=== PATIENT | female | born 1995 | race Caucasian/White ===

== ENCOUNTER 2017-09-01 09:38 | Emergency (ER) | payer OTHER ==
[2017-09-01 09:43] VITALS: TEMP 97.7; O2SAT 98
[2017-09-01] MEDS ORDERED: NS 1,000 ML IV ONE ×3 (09:59→10:00)
[2017-09-01] MEDS ORDERED: ONDANSETRON 4 MG/2 ML VIAL IVP ONE (09:59)
[2017-09-01] MEDS ORDERED: HYDROmorphONE/DILAUDID 1 MG/ML INJ IVP ONE (10:00)
--- NOTE | 2017-09-01 10:05 | EDPHY ---
H & P Stated Complaint: etoh last evening/n/v/d Time Seen by Provider: 09/01/17 09:53 - Personal History LMP (Females 10-55): Extended Cycle BCP/Inj Current Tetanus/Diphtheria Vaccine: Unsure - Medical/Surgical History Hx Asthma: No Hx Chronic Respiratory Disease: No Hx Diabetes: No Hx Cardiac Disease: Yes Hx Renal Disease: No Hx Cirrhosis: No Hx Alcoholism: No Hx HIV/AIDS: No Hx Splenectomy or Spleen Trauma: No Other PMH: SVT - Social History Smoking Status: Current some day smoker Constitutional: Initial Vital Signs Temperature (C) 36.5 C 09/01/17 09:41 Heart Rate 120 H 09/01/17 09:41 Respiratory Rate 20 09/01/17 09:41 Blood Pressure 110/81 H 09/01/17 09:41 O2 Sat (%) 98 09/01/17 09:41 O2 Delivery Mode Room Air Allergies/Adverse Reactions: No Known Allergies Allergy (Verified 09/01/17 09:40) Home Medications: Medication Instructions Recorded Alem 06/04/16 Lexapro 09/01/17 Ondansetron Odt [Zofran Odt 4 mg 4 mg PO Q4 PRN #10 tab 09/01/17 (RX)] Tizanidine HCl 09/01/17 Medical Decision Making ED Course/Re-evaluation: CHIEF COMPLAINT: Nausea vomiting diarrhea HISTORY OF PRESENT ILLNESS: Healthy 22-year-old female who around midnight last night developed nausea vomiting diarrhea. She has been unable to sleep and vomiting all night. She did have sushi and Ramen for dinner last night she is not sure food putting. 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 REVIEW OF SYSTEMS: A 10 point review of systems was performed and is negative with the exception of the elements mentioned in the history of present illness. PHYSICAL EXAM: HR, BP, O2 Sat, RR. Temp noted General Appearance: Alert, well hydrated, appropriate, and non-toxic appearing. Head: Atraumatic without scalp tenderness or obvious injury Eyes: Pupils equal, round, reactive to light and accommodation, EOMI, no trauma , no injection. Ears: Clear bilaterally, no perforation, normal landmarks Nose: Atraumatic, no rhinorrhea, clear. Throat: There is no erythema or exudates, no lesions, normal tonsils, mucus membranes moist. Neck: Supple, 2+ carotid upstroke, nontender, no lymphadenopathy. Respiratory: No retractions, no distress, no wheezes, and no accessory muscle use. Lungs are clear to auscultation bilaterally. Cardiovascular: Regular rate and rhythm, no murmurs, rubs, or gallops. Bilateral carotid, radial, dorsalis pedis, and posterior tibial pulses intact. Good capillary refill all extremities. Gastrointestinal: Abdomen is soft, nontender, non-distended, no masses, no rebound, no guarding, no peritoneal signs. Musculoskeletal: Normal active ROM of all extremities, atraumatic. Neurological: Alert, appropriate, and interactive. The patient has normal DTRs and non-focal cranial nerves, motor, sensory, and cerebellar exam. Skin: No rashes, good turgor, no nodules on palpation. Past medical history: None Past surgical history: Noncontributory Family history: Noncontributory Social history: Single, student, does not abuse tobacco drugs or alcohol DIFFERENTIAL DIAGNOSIS: The differential diagnosis for the patient's nausea and vomiting included but was not limited to gastroenteritis, gastritis, appendicitis, and medication side effect. MEDICAL DECISION MAKING: This patient is so dehydrated and thirsty. We are giving her 2 L to 3 L of normal saline were given her Zofran re-examined her half a mg of Dilaudid help quell her crampy abdominal pain associated diarrhea. Otherwise she is nontoxic appearing. This may be related to off food that she last night or simply a viral gastroenteritis which is been going around town. We started this patient on a p.o. trial. She is no longer nauseated. I will give her Zofran to go home. She will need to stay hydrated today and advance her diet throughout the day. - Data Points Medications Given: Discontinued Medications Hydromorphone HCl (Dilaudid) 0.5 mg IVP EDNOW ONE Stop: 09/01/17 10:01 Last Admin: 09/01/17 10:04 Dose: Not Given Sodium Chloride (Ns) 1,000 mls @ 0 mls/hr IV ONCE ONE; Wide Open PRN Reason: Protocol Stop: 09/01/17 10:00 Last Admin: 09/01/17 10:03 Dose: 1,000 mls Sodium Chloride (Ns) 1,000 mls @ 0 mls/hr IV EDNOW ONE; Wide Open PRN Reason: Protocol Stop: 09/01/17 10:01 Last Admin: 09/01/17 10:33 Dose: 1,000 mls Ondansetron HCl (Zofran) 4 mg IVP EDNOW ONE Stop: 09/01/17 10:00 Last Admin: 09/01/17 10:03 Dose: 4 mg Departure - Departure Disposition: Home, Routine, Self-Care Clinical Impression: Acute gastroenteritis Condition: Good Instructions: Dehydration (ED), Gastroenteritis (ED), Acute Nausea and Vomiting (ED) Additional Instructions: 1. Increase fluid intake. 2. Take 4mg oral Zofran as needed for nausea. 3. Follow-up with your primary doctor within 72 hours. 4. Return to the Emergency Department for fever, chest pain, shortness of breath , increasing pain, or other worsening of condition. Referrals: JACOBY ZHU, CARBOY FILLER [Primary Care Provider] - As per Instructions Prescriptions: Ondansetron Odt [Zofran Odt 4 mg (RX)] 4 mg PO Q4 PRN #10 tab PRN Reason: Nausea/Vomiting, Use 1st Report Scribed for: Chencho Melgar Report Scribed by: Jennifer Roberts Date of Report: 09/01/17 Time of Report: 10:23
[2017-09-01 11:24] VITALS: BP 114/70; PULSE 105; RESP 14
== END 2017-09-01 11:25 | disposition home or self-care (01) ==
DX: K52.9 Noninfective gastroenteritis and colitis, unspecified (principal); F17.200 Nicotine dependence, unspecified, uncomplicated; E86.9 Volume depletion, unspecified
CPT/HCPCS: 96374; J2405